=== PATIENT | male | born 1995 | race Caucasian/White ===

== ENCOUNTER 2024-12-08 10:53 | Outpatient (CLI) | payer OTHER, SELFPAY ==
--- NOTE | 2024-12-08 10:45 | RT.EKG_ITS ---
APPROVED REPORT Exam: Resting ECG Reason for Exam: chest discomfort Patient Location: O HR:77 bpm ECG Measurements Heart Rate 77 AXIS [place] 154 P 91 QRSd 84 QRS 116 QT 359 T 55 QTc 407 Conclusion Sinus rhythm...normal P axis, V-rate 50- 99
== END 2024-12-08 10:54 | disposition home or self-care (01) ==
LOC: DI.CM 10:53
PROVIDERS: Visit Provider Nurse Practitioner Family
DX: R07.89 Other chest pain (principal)
CPT/HCPCS: 93010

== ENCOUNTER 2024-12-08 13:32 | Emergency (ER) | payer OTHER, SELFPAY ==
[2024-12-08] VITALS (22 sets, daily range): BP systolic 118–159; BP diastolic 75–100; PULSE 63–88; RESP 12–30; TEMP 36.5; O2SAT 98–100
--- NOTE | 2024-12-08 13:30 | RT.EKG_ITS ---
APPROVED REPORT Exam: Resting ECG Reason for Exam: palpitations Patient Location: E HR:73 bpm ECG Measurements Heart Rate 73 AXIS [place] 146 P 81 QRSd 87 QRS 117 QT 372 T 44 QTc 404 Conclusion Sinus rhythm, rate 73 PVC No interval abnormalities No STEMI
--- NOTE | 2024-12-08 13:55 | ED.GENADUL_ITS ---
Discharge Plan Disposition Patient Disposition: Home Condition: Stable Discharge Details Clinical Impression: Palpitations, Ectopic beats Primary Care Provider: Unknown,Unknown ED Provider: Annie Devries Home Meds and New Rx's Prescriptions: No Action No Known Home Meds Discharge Instructions Instructions: Ventricular premature beats, Palpitations (DC) Additional Instructions: You were seen in the emergency department today for evaluation of palpitations, and were found to have ectopic cardiac beats. In our department you had a full physical examination performed, had reassuring laboratory studies and no sign of damage to your heart. It is safe for you to go home but you need to follow-up with your primary care provider in the next week or so, and I have placed you a referral, to discuss next steps in workup and management. Please avoid excessive caffeine, maintain good hydration and nutrition, and return to the emergency department if you develop chest pain, shortness of breath, dizziness or loss of consciousness or any other symptoms that cause you concern. Thank you for allowing us to be part of your care. HPI General Mode of arrival: ambulatory . Date/Time Provider Initiated Documentation: 12/08/24 13:43 . Limitations to Documentation: no limitations . Information obtained by: patient and old records reviewed . HPI Narrative: HPI: This is a previously healthy 29-year-old male patient presenting for evaluation of palpitations and chest pain. Sent from urgent care with ectopic beats on his EKG. States that he has felt this way for about 24 hours, can feel palpitations when he is laying still, especially at nighttime. Chest pain has improved significantly, now he just feels tired in his chest. He states he has never had any experience like this before, has no personal history of cardiac disease and denies family history of early cardiac or arrhythmias. 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 He cannot think of any new medications or changes to his health could have caused this. Does not use nicotine or tobacco, does not drink alcohol, occasional marijuana Exam: Gen: Awake and alert, in no apparent distress HEENT: Non-icteric sclera Neck: Supple Lungs: No apparent respiratory distress, normal respiratory effort. Lung sounds clear and equal bilaterally without wheezes, rhonchi, rales CV: Appears well perfused, heart with regular rate and rhythm with frequent ectopic beats appreciated on telemetry, strong distal pulses, symmetrical bilaterally Abdomen: Non-distended MSK: Moves 4 extremities without apparent limitation in ROM. No peripheral edema, no unilateral calf swelling or tenderness Skin: Visualized skin without rashes, cyanosis. Neuro: Normal Gait, no obvious focal deficits or facial asymmetry. Speaks in full, clear sentences. Psych: Appropriate for situation. MDM: This is a 29-year-old male patient presenting for evaluation of palpitations. Differential includes but is not limited to arrhythmia, ectopy, metabolic electrolyte derangements, kidney injury, anemia, hyperthyroidism, considered effect of caffeine and other substances/medications, though the patient denies any significant history of same. Considered underlying structural cardiac abnormalities, ACS. We will obtain laboratory studies to include CBC, CMP, magnesium, troponin, and TSH. I will obtain a chest x-ray and EKG. ED Course: EKG independently interpreted by myself, showing a normal sinus rhythm, capturing a PVC, with no evidence of ischemia, interval abnormality, or ectopy. I independently interpreted the laboratory studies, which show no significant leukocytosis, anemia, or thrombocytopenia. The chemistry panel is without evidence of electrolyte abnormality, kidney dysfunction, or liver injury. TSH within normal limits. Chest x-ray reveals no significant abnormalities to explain the patient's symptoms. 2 troponins were negative without evidence for cardiac ischemia. I did provide the patient with a referral to a primary care provider as I do believe that this condition will require further workup and management as it is because has not been entirely elucidated in the emergency department. However, at this time, the patient has had a full medical evaluation and is safe for discharge to home. They are hemodynamically stable, ambulatory, and tolerating PO. They are understanding of the follow-up plan and return precautions. They left our facility without incident. Annie Devries MD Related Data Home Medications ?Medication ?Instructions ?Recorded ?Confirmed Unknown [No Known Home Meds] 12/08/24 12/08/24 Allergies Allergy/AdvReac Type Severity Reaction Status Date / Time gluten AdvReac Mild Other (See Verified 12/08/24 14:08 Comment) Medical Decision Making Quality:SDOH Health Related Social Needs: No Data to Display PFSH All Active Problems (Updated 12/08/24 @ 15:58 by Annie Devries MD) Ectopic beats (Acute) Palpitations (Acute) Social History Smoking/Tobacco Use Status: Never Smoking risk assessment performed?: Yes Drug use: Socially Substance use type: marijuana
[2024-12-08 14:40] LABS: Abs Immature Grans 0.01 10^3/uL (0.0-0.06); Absolute Basophil Count 0.03 10^3/uL (0.0-0.2); Absolute Eosinophil Count 0.04 10^3/uL (0.0-0.7); Absolute Lymphocyte Count 1.64 10^3/uL (1.2-3.4); Absolute Monocyte Count 0.76 10^3/uL (0.1-0.8); Absolute Neutrophil Count 3.01 10^3/uL (1.2-6.7); Basophils % 0.5 %; Eosinophils % 0.7 %; HCT 44.8 % (40.0-50.0); HGB 15.6 g/dL (13.5-17.5); Immature Grans % 0.2 %; Lymphocytes % 29.9 %; MCH 30.5 pg (27.0-33.0); MCHC 34.8 % (32.0-36.0); MCV 88 fL (80-95); MPV 10.5 fL (8.0-11.0); Monocytes % 13.8 %; Neutrophils % 54.9 %; Platelet Count 218 10^3/uL (130-400); RBC 5.11 10^6/uL (4.36-5.78); RDW 11.6 % (11.8-14.1); RDW-SD 37.3 fL; WBC 5.49 10^3/uL (4.4-10.8)
[2024-12-08 14:41] LABS: ALT 30 U/L (16-63); AST 21 U/L (15-37); Albumin 4.5 g/dL (3.4-5.0); Alkaline Phosphatase 52 U/L (46-116); Anion Gap 6.6 mmol/L (3-11); BUN 9 mg/dL (7-18); Bilirubin, Total 0.73 mg/dL (0.2-1.0); CO2 32.4 mmol/L (21.0-32.0); CREATININE 0.9 mg/dL (0.70-1.30); Calcium 9.8 mg/dL (8.5-10.1); Chloride 106 mmol/L (98-107); Estimated GFR 117.83 (mL/min/1.73m2); Glucose 91 mg/dL (74-106); Magnesium 2.1 mg/dL (1.8-2.4); Potassium 4.5 mmol/L (3.5-5.1); Sodium 145 mmol/L (136-145); TSH (W/Ref FT4) 1.93 uIU/mL (0.36-3.74); Total Protein 8.1 g/dL (6.4-8.2); Troponin I 4 ng/L (<or=76)
--- NOTE | 2024-12-08 14:45 | DI.RAD_ITS ---
Exam(s) XR CHEST 2V PA LATERAL EXAM: XR CHEST 2V PA LATERAL CLINICAL HISTORY: Chest pain TECHNIQUE: 2D digital imaging was performed of the chest. Two images were obtained. PA and lateral views were obtained. COMPARISON: No exams were available for comparison FINDINGS: MEDIASTINUM: Normal. HEART: Normal. PULMONARY VASCULATURE: Normal. LUNGS: Clear. PLEURAL SPACE: No pleural effusion or pneumothorax. BONE:Within normal limits for the patient's age. OTHER FINDINGS:Normal. IMPRESSION: No acute pulmonary findings. DATA REPOSITORY: RADIATION DOSE DELIVERED:
[2024-12-08 15:38] LABS: Troponin I < 4 ng/L (<or=76)
== END 2024-12-08 16:34 | disposition home or self-care (01) ==
PROVIDERS: Emergency Provider Emergency Medicine
DX: R00.2 Palpitations (principal); I49.49 Other premature depolarization
CPT/HCPCS: 80053; 93005; 99284; 71046; 83735; 84443; 84484; 85025; 93010